=== PATIENT | female | born 1980 | race Two or more races ===

== ENCOUNTER 2023-05-25 10:01 | Emergency (ER) | payer MEDICAID, OTHER ==
[~2023-05-25] VITALS: Ht 170.2 cm; Wt 94.3 kg
[2023-05-25 10:11] VITALS: BP 140/110; PULSE 94; RESP 16
[2023-05-25] MEDS ORDERED: AUG875T PO (11:06)
[2023-05-25] MEDS ORDERED: IBUP-1456 PO (11:06)
[2023-05-25 11:15] VITALS: O2SAT 98
== END 2023-05-25 11:16 | disposition home or self-care (01) ==
LOC: ER 10:01
DX: H66.91 Otitis media, unspecified, right ear (principal); Z79.1 Long term (current) use of non-steroidal anti-inflammatories (NSAID); Z79.2 Long term (current) use of antibiotics